=== PATIENT | male | born 1970 | race Caucasian/White ===

== ENCOUNTER 2023-04-02 11:34 | Emergency (ER) | payer SELFPAY ==
[2023-04-02] VITALS (8 sets, daily range): BP systolic 136–158; BP diastolic 71–93; PULSE 85–102; RESP 18–25; TEMP 36.4; O2SAT 86–98; BMI 19.0
--- NOTE | 2023-04-02 11:42 | CT_ITS ---
PROCEDURE INFORMATION: Exam: CTA Neck With Contrast Exam date and time: 04/02/2023 12:00 PM Age: 53 years old Clinical indication: Other: AMS TECHNIQUE: Imaging protocol: Computed tomographic angiography of the neck with contrast. 3D rendering (Not supervised by radiologist): MIP and/or 3D reconstructed images were created by the technologist. Radiation optimization: All CT scans at this facility use at least one of these dose optimization techniques: automated exposure control; mA and/or kV adjustment per patient size (includes targeted exams where dose is matched to clinical indication); or iterative reconstruction. Contrast material: ISO 370; Contrast volume: 95 ml; Contrast route: INTRAVENOUS (IV); REPORTING DATA: Count of CT and Cardiac NM exams in prior 12 months: This patient has received 0 known CTs and 0 known cardiac nuclear medicine studies in the 12 months prior to the current study. COMPARISON: CT HEAD/BRAIN WO CON 04/02/2023 11:56 AM FINDINGS: Right common carotid artery: No stenosis. No dissection or occlusion. Right internal carotid artery: No stenosis of the extracranial segment. No dissection or occlusion. Right external carotid artery: No occlusion or stenosis of the origin. Left common carotid artery: No stenosis. No dissection or occlusion. Left internal carotid artery: No stenosis of the extracranial segment. No dissection or occlusion. Left external carotid artery: No occlusion or stenosis of the origin. Right vertebral artery: No stenosis. No dissection or occlusion. Left vertebral artery: Vertebral arteries are codominant. There is occlusion of the distal left vertebral artery at the C2 level with no enhancement intracranially resulting in acute infarct endovascular bed mainly the inferior cerebellar hemisphere on the left. Soft tissues: Normal. No significant soft tissue swelling. Bones/joints: Cervical spondylosis is present. Lungs: Patchy airspace disease is partially imaged in the posterior aspect of the right upper lobe and the superior segment of the left lower lobe. Suggest noncontrast CT of the thorax to further assess. Apical scarring is noted in the lungs. Other findings: There is heavy atheromatous plaque and calcification noted at the carotid bulbs causing less than 40% stenosis bilaterally. 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 Heavy calcific plaque without significant stenosis at the carotid bulbs. Patchy airspace disease noted in the lungs, suggest noncontrast CT of the thorax to further assess. THIS REPORT CONTAINS FINDINGS THAT MAY BE CRITICAL TO PATIENT CARE. The findings were verbally communicated via telephone conference with ORIN VALADEZ at 12:30 PM EDT on 04/02/2023. The findings were acknowledged and understood. REFERENCES: NASCET CRITERIA. The degree of stenosis in the cervical segment of the internal carotid artery is based on NASCET criteria. Normal is no stenosis. Mild is less than 50% stenosis. Moderate is 50-69% stenosis. Severe is 70% to 99% stenosis. Total occlusion is no detectable patent lumen.
--- NOTE | 2023-04-02 11:42 | CT_ITS ---
PROCEDURE INFORMATION: Exam: CT Head Without Contrast Exam date and time: 04/02/2023 11:56 AM Age: 53 years old Clinical indication: Altered mental status/memory loss; Additional info: AMS TECHNIQUE: Imaging protocol: Computed tomography of the head without contrast. Radiation optimization: All CT scans at this facility use at least one of these dose optimization techniques: automated exposure control; mA and/or kV adjustment per patient size (includes targeted exams where dose is matched to clinical indication); or iterative reconstruction. REPORTING DATA: Count of CT and Cardiac NM exams in prior 12 months: This patient has received 0 known CTs and 0 known cardiac nuclear medicine studies in the 12 months prior to the current study. COMPARISON: No relevant prior studies available. FINDINGS: Brain: There is acute infarct noted in the inferior cerebellar hemispheres especially on the left with relative density of the distal left vertebral artery likely representing occlusion. Chronic ganglial capsular lacunar infarcts are noted. There is no midline shift, acute hemorrhage or extra-axial fluid collection. Cerebral ventricles: No ventriculomegaly. Paranasal sinuses: Visualized sinuses are unremarkable. No fluid levels. Mastoid air cells: Visualized mastoid air cells are well aerated. Bones/joints: Unremarkable. No acute fracture. Soft tissues: Unremarkable. IMPRESSION: Acute infarcts in the posterior fossa in the distribution of the probably occluded distal left vertebral artery.
--- NOTE | 2023-04-02 11:42 | CT_ITS ---
PROCEDURE INFORMATION: Exam: CTA Head With Contrast, Arteriography Exam date and time: 04/02/2023 12:00 PM Age: 53 years old Clinical indication: Other: AMS TECHNIQUE: Imaging protocol: Computed tomographic angiography of the head with contrast. Exam focused on the arteries. 3D rendering (Not supervised by radiologist): MIP and/or 3D reconstructed images were created by the technologist. Radiation optimization: All CT scans at this facility use at least one of these dose optimization techniques: automated exposure control; mA and/or kV adjustment per patient size (includes targeted exams where dose is matched to clinical indication); or iterative reconstruction. Contrast material: ISO 370; Contrast volume: 95 ml; Contrast route: INTRAVENOUS (IV); REPORTING DATA: Count of CT and Cardiac NM exams in prior 12 months: This patient has received 0 known CTs and 0 known cardiac nuclear medicine studies in the 12 months prior to the current study. COMPARISON: CT HEAD/BRAIN WO CON 04/02/2023 11:56 AM FINDINGS: ANTERIOR CIRCULATION: Right internal carotid artery: Intracranial segment is patent with no significant stenosis. No aneurysm. Right middle cerebral artery: No occlusion or significant stenosis. No aneurysm. Right anterior cerebral artery: No occlusion or significant stenosis. No aneurysm. Left internal carotid artery: Intracranial segment is patent with no significant stenosis. No aneurysm. Left middle cerebral artery: No occlusion or significant stenosis. No aneurysm. Left anterior cerebral artery: No occlusion or significant stenosis. No aneurysm. POSTERIOR CIRCULATION: Right vertebral artery: No occlusion or significant stenosis. No aneurysm. Left vertebral artery: Vertebral arteries are codominant. There is occlusion of the left vertebral artery at the C2 level with no enhancement intracranially. Basilar artery: No occlusion or significant stenosis. No aneurysm. Right posterior cerebral artery: No occlusion or significant stenosis. No aneurysm. Left posterior cerebral artery: No occlusion or significant stenosis. No aneurysm. Brain: No definite mass, mass effect, or midline shift. Cerebral ventricles: No ventriculomegaly. Bones/joints: Unremarkable. No acute fracture. Soft tissues: Unremarkable. Other findings: There is heavy calcific atheromatous plaque noted at the carotid bulbs bilaterally causing less than 40% stenosis on each side. IMPRESSION: Occlusion of the distal left cervical vertebral artery at the C2 level with no intracranial enhancement resultant infarcts in its vascular bed mainly the inferior left cerebellar hemisphere. Heavy calcific plaque with less than 40% stenosis of the carotid bulbs. THIS REPORT CONTAINS FINDINGS THAT MAY BE CRITICAL TO PATIENT CARE. The findings were verbally communicated via telephone conference with ORIN VALADEZ at 12:28 PM EDT on 04/02/2023. The findings were acknowledged and understood.
--- NOTE | 2023-04-02 11:43 | XR_ITS ---
PROCEDURE INFORMATION: Exam: XR Chest Exam date and time: 04/02/2023 12:01 PM Age: 53 years old Clinical indication: Cough; Additional info: Hypoxia TECHNIQUE: Imaging protocol: Radiologic exam of the chest. Views: 1 view. COMPARISON: CT ANGIO NECK 04/02/2023 12:00 PM FINDINGS: Lungs: The lungs are hyperinflated. There is questionable vague opacity at the left lung base measuring approximately 32 x [address] of the thorax to further assess. Pleural spaces: Unremarkable. No pleural effusion. No pneumothorax. Heart/Mediastinum: Unremarkable. No cardiomegaly. Bones/joints: Unremarkable. IMPRESSION: Hyperinflation. Query opacity at the left lung base. Recommend noncontrast CT of the thorax to further assess.
--- NOTE | 2023-04-02 11:45 | [facility].EDGENADL ---
Discharge Plan Disposition Chief Complaint: Neuro Symptoms/Deficit Referrals Follow up/Referrals: Provider,Referral, MD [Primary Care Provider] - See instructions Clinical Impressions Clinical Impression: Acute arterial ischemic stroke, multifocal, posterior circulation, Headache, Ataxia Stand Alone Forms Stand Alone Forms: Transfer Record - ED Discharge ED Provider: Jose Rafael Null General Adult HPI General Chief complaint: Neuro Symptoms/Deficit Stated complaint: dizzy, weakness, vomiting Time Seen by Provider: 04/02/23 11:37 History of Present Illness HPI narrative: Patient is a 53-year-old male with past medical history of previous smoking, intermittent inhaler use, no oxygen use who presents emergency department for evaluation of dizziness. History is obtained by patient at bedside. Yesterday he was working inside when he became acutely dizzy, difficult to qualify whether or not the room was spinning. Patient had severe holocranial headache at the onset of dizziness. It has been persistent, unrelenting. Patient has had multiple episodes of nonbloody vomiting. Denies chest pain or abdominal pain. He has been unable to stand since due to the dizziness. No other acute complaints at this time. Related Data Allergies Allergy/AdvReac Type Severity Reaction Status Date / Time Penicillins Allergy Verified 04/02/23 12:17 [facility] Disclaimer: The information contained in this section may have been updated after the patient was seen, as this information can be updated by other users. Social History Smoking Status: Current every day smoker alcohol intake: never current occupational status: other Travel in the last 8 weeks: None ROS Obtained: Yes Systems reviewed as appropriate & no additional complaints except as documented Physical Exam General General appearance: alert Head Head exam: atraumatic and normocephalic Eye Eye exam: Present PERRL, EOMI and other (Slow horizontal saccadic movement however extraocular movements are intact.) ENT ENT exam: Present mucous membranes moist Neck Neck exam: Present normal inspection Chest Chest inspection: Present normal inspection and symmetric chest wall rise Respiratory Respiratory exam: Present normal lung sounds bilaterally; Absent respiratory distress Cardiovascular Cardiovascular exam: Present regular rate and normal rhythm Abdominal Exam Abdominal exam: Present soft; Absent tenderness Extremities Exam Extremities exam: Present normal inspection Neurological Exam Neurological exam: Present alert, oriented X3 and other (Left upper extremity left lower extremity ataxia, mild facial asymmetry on the left, mild dysarthria.) Psychiatric Psychiatric exam: Present normal affect Skin Skin exam: Present warm and dry Medical Decision Making Nabil Inquiry Pt receiving controlled substance: No Vital Signs: 04/02/23 11:35 04/02/23 12:42 04/02/23 12:35 Temperature 97.6 F 97.6 F Temperature Source Axillary Pulse Rate 89 89 Pulse Rate [Right] 102 H Respiratory Rate 23 18 25 H Blood Pressure 158/88 H 158/88 H Blood Pressure [Right Arm] 137/86 Blood Pressure Mean [Right Arm] 103 Blood Pressure Source [Right Arm] Automatic Cuff 02 Sat by Pulse Oximetry 86 L 98 Oxygen Delivery Method Room Air Nasal Cannula Oxygen Flow Rate (LPM) 3 3 04/02/23 12:43 04/02/23 12:46 Temperature Temperature Source Pulse Rate 85 Pulse Rate [Right] Respiratory Rate 23 Blood Pressure 136/71 158/88 H Blood Pressure [Right Arm] Blood Pressure Mean [Right Arm] Blood Pressure Source [Right Arm] 02 Sat by Pulse Oximetry 98 Oxygen Delivery Method Nasal Cannula Oxygen Flow Rate (LPM) 3 Lab Data Lab Results 04/02/23 11:40: WBC 30.9 H*, RBC 4.63, Hgb 14.1, Hct 42.7, MCV 92.2, MCH 30.5, MCHC 33.1, RDW 12.7, Plt Count 284, MPV 8.0, Neut % (Auto) 92.9 H, Lymph % (Auto) 3.4 L, Tensas % (Auto) 3.3, Eos % (Auto) 0.3, Baso % (Auto) 0.1, N
[2023-04-02 11:48] LABS: POC Glucose,Bedside 146 (70-110)
--- NOTE | 2023-04-02 11:52 | INFXCTL.NOTE ---
pt to ct
[2023-04-02 11:55] LABS: Coronavirus 19, PCR Not Detected (NotDetected); Influenza A, PCR Not Detected (NotDetected); Influenza B, PCR Not Detected (NotDetected)
[2023-04-02 11:58] LABS: Basophils % 0.1 % (0.1-2.0); Eosinophils # 0.1 K/mm3 (0.0-0.4); Eosinophils % 0.3 % (0.1-12.0); Hematocrit 42.7 % (42.0-52.0); Hemoglobin 14.1 g/dL (14.1-18.0); Lymphocytes # 1.1 K/mm3 (0.7-4.5); Lymphocytes % 3.4 % (10-50); Mean Corpuscular HGB Conc 33.1 g/dL (31.8-35.4); Mean Corpuscular Hemoglobin 30.5 pg (27.0-31.2); Mean Corpuscular Volume 92.2 fl (80-94); Monocytes % 3.3 % (1.7-9.3); Neutrophils # 28.7 K/mm3 (1.8-7.8); Neutrophils % 92.9 % (37.0-80.0); Platelet Count 284 K/mm3 (142-424); Red Blood Count 4.63 M/mm3 (4.60-6.20); Red Cell Distribution Width 12.7 % (11.5-17.5); White Blood Count 30.9 K/mm3 (4.8-10.8)
[2023-04-02 12:01] LABS: MANUAL DIFFERENTIAL MANUAL DIFFERENTIAL (MANUAL DIFF)
[2023-04-02 12:02] LABS: Chloride 88 mmol/L (98-107); Potassium 4.3 mmoL/L (3.5-5.1); Sodium 130 mmol/L (136-145)
[2023-04-02 12:05] LABS: Alanine Aminotransferase 29 U/L (12-78); Albumin Level 3.7 g/dl (3.5-5.0); Albumin/Globulin Ratio 0.8 (1.1-1.8); Alkaline Phosphatase 122 U/L (38-126); Anion Gap 18.3 mEq/L (5-15); Aspartate Amino Transferase 37 U/L (17-59); Bilirubin,Total 1.5 mg/dl (0.2-1.3); Blood Urea Nitrogen 19 mg/dl (9-20); Carbon Dioxide 28 mmol/L (22.0-30.0); Estimated Glomerular Filt Rate 140 ml/min (>60); GFR (African American) 170 ML/MIN (>60); Globulin 4.7 g/dL (1.3-3.2); Total Protein,Serum 8.4 g/dl (6.3-8.2)
[2023-04-02 12:06] LABS: Calcium 9.5 mg/dl (8.4-10.2); Glucose 147 mg/dl (74-100); Lipase 25 U/L (23-300); Magnesium 1.5 mg/dl (1.6-2.3)
--- NOTE | 2023-04-02 12:06 | PC.NURSE ---
pt return from CT
[2023-04-02 12:07] LABS: INR 1.11 (0.9-1.1); Prothrombin Time 11.9 seconds (10.1-12.5)
--- NOTE | 2023-04-02 12:10 | ECG_ITS ---
APPROVED REPORT Exam: Resting ECG HR:88 bpm ECG Measurements Heart Rate 88 AXES ME 144 P 81 QRSd 91 QRS 72 QT 418 T 75 QTc 463 Conclusion SINUS RHYTHM LEFT ATRIAL Abnormality LEFT VENTRICULAR HYPERTROPHY TALL T-WAVES, SUGGESTS HYPERKALEMIA PROLONGED QT INTERVAL ABNORMAL ECG UNCONFIRMED REPORT Electronically signed by : Michael Mayorga MD 04/04/2023 17:19:42
--- NOTE | 2023-04-02 12:14 | PC.NURSE ---
titrated o2 down to 3LPM NC d/t sat 100%
[2023-04-02 12:18] LABS: Lymphocytes % 3 % (10-50); Monocytes % 4 % (2-9); Neutrophils % 93 % (42-76); Total Cells Counted 100
[2023-04-02 12:19] LABS: Platelet Estimate Normal; RBC Morphology Normal
--- NOTE | 2023-04-02 12:20 | PC.NURSE ---
on the phone with transfer center r/t transfer at this time
--- NOTE | 2023-04-02 12:28 | PC.NURSE ---
ESTEBAN BLACKWOOD speaking neurology at
--- NOTE | 2023-04-02 12:29 | PC.NURSE ---
Pt accepted to [facility] by Dr. Carol Ann Osman
--- NOTE | 2023-04-02 12:43 | PC.NURSE ---
EMS here for transport d/t Flight decline d/t weather. ordered Manitol. Verified [facility] pharmacy for dosing.
--- NOTE | 2023-04-02 13:10 | PC.NURSE ---
pt transported to ER per [facility], swati dumont going along with pt.
--- NOTE | 2023-04-02 15:52 | PC.NURSE ---
@ 1315 called report to [facility] ER bottle dealer Khal. @ 1330 BP 150/93, sat 92%- 3LPM NC. Titrated pt o2 to 4LPM NC, HR 85, RR 27 @ 1345 BP 136/88, sat 95% 4LPM NC, HR 83, RR 24. Pt having occasional PVC that have not been present before. NIHSS 4 at this time. GCS 14 d/t pt being less alert. @ 1355 Arrived at . Pt registered and taken to ER room 43. Gave report to Pharmacy, PLATE CONDITIONER, and Nurse in room with Micheal Thorne. Pharmacy is clarifying the continuation of Mannitol gtt. @ 1415 Pharmacy states to complete the Mannitol per Neurology . 15 ml remaining of previously ordered dose. @ 1425 Mannitol complete and collected [facility] pump prior to leaving [facility] ER.
== END 2023-04-02 13:11 | disposition short-term general hospital (02) ==
PROVIDERS: Emergency Provider Emergency Medicine
DX: I63.50 Cerebral infarction due to unspecified occlusion or stenosis of unspecified cerebral artery (principal); R51.9 Headache, unspecified; R42 Dizziness and giddiness; F17.200 Nicotine dependence, unspecified, uncomplicated; R53.1 Weakness
CPT/HCPCS: 70450; 70496; 70498; 71045; 80053; 82962; 83690; 83735; 85007; 85025; 85610; 87636; 93005; 96365; 96375; 99291; J0131; Q9967